=== PATIENT | male | born 1960 | race African-American/Black ===

== ENCOUNTER 2016-07-29 20:17 | Emergency (ER) | payer OTHER ==
[~2016-07-29] VITALS: Ht 177.8 cm; Wt 128.4 kg
[~2016-07-29 20:17] MED LIST: AMLO5TAB2 PO; ASPI81TA7 PO; ASPI81TA85 PO; HYDR12.55 PO; LOSA25TA8 PO; LOSA50TA20 PO; METF500T PO; METO50TA2 PO; MULTCAP PO; MULTTAB4 PO; NICO21PAT TD; OMEP20CA3 PO; SIMV20TA2 PO
[2016-07-29 20:19] VITALS: BP 146/84
[2016-07-29] MEDS ORDERED: ATOR1TAB18 PO (21:06)
[2016-07-29] MEDS ORDERED: INSULADS INJ (21:06)
== END 2016-07-30 00:55 | disposition left against medical advice (07) ==
LOC: M ED 07-30 00:23
DX: Z53.21 Procedure and treatment not carried out due to patient leaving prior to being seen by health care provider (principal)

== ENCOUNTER 2016-08-07 12:59 | Emergency (ER) | payer OTHER ==
[~2016-08-07] VITALS: Ht 177.8 cm; Wt 127.0 kg
[~2016-08-07 12:59] MED LIST changes: +ATOR1TAB18 PO; +INSULADS INJ
[2016-08-07] MEDS ORDERED: METF850T PO (13:16)
[2016-08-07] MEDS ORDERED: AMLO10TA2 PO (13:16)
[2016-08-07] MEDS ORDERED: ATOR40TA PO (13:16)
[2016-08-07] MEDS ORDERED: VITA100041 PO (13:16)
[2016-08-07] MEDS ORDERED: CHLO25TA GT (13:16)
[2016-08-07] MEDS ORDERED: OXYC1SOL PO (13:16)
[2016-08-07] MEDS ORDERED: METO-209 PO (13:16)
[2016-08-07] MEDS ORDERED: NS 1,000 ML IV ONE (13:30)
[2016-08-07] MEDS ORDERED: ONDANSETRON 4MG/2ML VIAL (J2405) IV ONE (13:30)
[2016-08-07] MEDS ORDERED: KETOROLAC 30 MG/ML VIAL (J1885) IV ONE (13:30)
[2016-08-07 14:21] LABS: BASO % 0.7 % (0.0-1.0); EOS # 0.2 K/mm3 (0.0-0.50); EOS % 2.3 % (0.0-3.0); LARGE UNSTAINED CELL # 0.2 K/mm3 (0.0-0.4); LARGE UNSTAINED CELL % 3.1 % (0.0-4.0); LYMPH # 1.9 K/mm3 (1.5-4.5); LYMPH % 29.3 % (24.0-44.0); MEAN CORPUSCULAR HEMOGLOBIN 27.7 pg (27.0-33.0); MEAN CORPUSCULAR HGB CONC 33.2 g/dl (32.0-36.5); MEAN CORPUSCULAR VOLUME 83.5 fl (80.0-96.0); MONO # 0.4 K/mm3 (0.0-0.8); MONO % 5.5 % (0.0-5.0); NEUTROPHILS # 3.9 K/mm3 (1.8-7.7); NEUTROPHILS % 59.1 % (36.0-66.0); PLATELET COUNT, AUTOMATED 271 k/mm3 (150-450); RED CELL DISTRIBUTION WIDTH 12.4 % (11.5-14.5); WHITE BLOOD COUNT 6.6 K/mm3 (4.0-10.0)
[2016-08-07 14:54] LABS: ALBUMIN 3.5 GM/DL (3.2-5.2); ALBUMIN/GLOBULIN RATIO 0.64 (1.00-1.93); ALKALINE PHOSPHATASE 85 U/L (45-117); ALT/SGPT 41 U/L (12-78); AMYLASE 67 U/L (25-115); ANION GAP 8 MEQ/L (8-16); AST/SGOT 30 U/L (15-37); BILIRUBIN,DIRECT 0.2 MG/DL (0.0-0.2); BILIRUBIN,TOTAL 0.7 MG/DL (0.2-1.0); BLOOD UREA NITROGEN 15 MG/DL (7-18); CALCIUM LEVEL 9.6 MG/DL (8.5-10.1); CARBON DIOXIDE LEVEL 29 MEQ/L (21-32); CHLORIDE LEVEL 101 MEQ/L (98-107); GLOMERULAR FILTRATION RATE > 60.0 (>56); GLUCOSE, FASTING 106 MG/DL (70-105); POTASSIUM SERUM 3.7 MEQ/L (3.5-5.1); SODIUM LEVEL 138 MEQ/L (136-145)
[2016-08-07] MEDS ORDERED: DULC100C PO ×2 (15:07→15:28)
[2016-08-07] MEDS ORDERED: ULTR50TA PO ×2 (15:07→15:27)
[2016-08-07 15:08] VITALS: BP 136/80
--- NOTE | 2016-08-08 08:18 | ECGEPIP ---
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
== END 2016-08-07 15:35 | disposition home or self-care (01) ==
LOC: M ED 13:29
DX: K85.90 Acute pancreatitis without necrosis or infection, unspecified (principal); I51.9 Heart disease, unspecified; Z79.899 Other long term (current) drug therapy; Z79.82 Long term (current) use of aspirin; Z79.4 Long term (current) use of insulin; Z91.013 Allergy to seafood; Z88.8 Allergy status to other drugs, medicaments and biological substances
CPT/HCPCS: 80048; 80076; 81001; 82150; 82550; 82553; 83690; 84484; 85025; 93005; 96361; 96374; 96375; 99282; J1885; J2405

== ENCOUNTER 2016-12-11 00:14 | Emergency (ER) | payer OTHER ==
[~2016-12-11] VITALS: Ht 177.8 cm; Wt 125.0 kg
[~2016-12-11 00:14] MED LIST changes: +AMLO10TA2 PO; -ATOR1TAB18 PO; +ATOR40TA75 PO; +ATOR80TA59 PO; +CHLO25TA PO; +DULC100C PO; -METF500T PO; +METF500T13 PO; +METF850T4 PO; +METO1TAB33 PO; +METO50TA7 PO; +OXYC1SOL3 PO; +ULTR50TA8 PO; +VITA-182 PO
[2016-12-11 00:22] VITALS: BP 155/98
[2016-12-11 01:26] LABS: INR 0.96
[2016-12-11 01:38] LABS: BASO # 0.1 K/mm3 (0.0-0.2); BASO % 1.3 % (0.0-1.0); EOS # 0.2 K/mm3 (0.0-0.50); EOS % 2.7 % (0.0-3.0); LARGE UNSTAINED CELL # 0.3 K/mm3 (0.0-0.4); LARGE UNSTAINED CELL % 3.6 % (0.0-4.0); LYMPH # 2.5 K/mm3 (1.5-4.5); LYMPH % 34.3 % (24.0-44.0); MEAN CORPUSCULAR HEMOGLOBIN 27.6 pg (27.0-33.0); MEAN CORPUSCULAR HGB CONC 32.5 g/dl (32.0-36.5); MEAN CORPUSCULAR VOLUME 85.1 fl (80.0-96.0); MONO # 0.5 K/mm3 (0.0-0.8); MONO % 7.1 % (0.0-5.0); NEUTROPHILS # 3.7 K/mm3 (1.8-7.7); PLATELET COUNT, AUTOMATED 251 k/mm3 (150-450); RED CELL DISTRIBUTION WIDTH 12.7 % (11.5-14.5); WHITE BLOOD COUNT 7.2 K/mm3 (4.0-10.0)
[2016-12-11 01:46] LABS: ALBUMIN 3.4 GM/DL (3.2-5.2); ALBUMIN/GLOBULIN RATIO 0.65 (1.00-1.93); ALKALINE PHOSPHATASE 69 U/L (45-117); ALT/SGPT 37 U/L (12-78); AMYLASE 91 U/L (25-115); ANION GAP 6 MEQ/L (8-16); AST/SGOT 24 U/L (15-37); BILIRUBIN,DIRECT 0.1 MG/DL (0.0-0.2); BILIRUBIN,TOTAL 0.4 MG/DL (0.2-1.0); BLOOD UREA NITROGEN 23 MG/DL (7-18); CALCIUM LEVEL 9.4 MG/DL (8.5-10.1); CARBON DIOXIDE LEVEL 29 MEQ/L (21-32); CHLORIDE LEVEL 105 MEQ/L (98-107); CREATININE FOR GFR 1.14 MG/DL (0.70-1.30); GLOMERULAR FILTRATION RATE > 60.0 (>56); GLUCOSE, FASTING 133 MG/DL (70-105); POTASSIUM SERUM 3.6 MEQ/L (3.5-5.1); SODIUM LEVEL 140 MEQ/L (136-145); TOTAL PROTEIN 8.6 GM/DL (6.4-8.2)
[2016-12-11] MEDS ORDERED: MORPHINE 4 MG/ML 1ML SYRINGE IV ONE (02:15)
[2016-12-11] MEDS ORDERED: NS 1,000 ML IV ONE (02:15)
[2016-12-11] MEDS ORDERED: HYDROmorphone HCL 1 MG/ML SYRINGE (J1170) IV ONE (02:45)
--- NOTE | 2016-12-11 03:40 | REPUSA ---
CLINICAL HISTORY: Abdominal pain. TECHNIQUE: Multiple axial, sagittal and coronal CT images were obtained through the abdomen and pelvi s without administration of oral or IV contrast material. COMMENTS: Mild peripancreatic fat stranding. The liver is enlarged with decreased attenuation without mass or defect. There is no intra or extrahe patic biliary ductal dilatation. The spleen is normal. The gallbladder is within normal limits. The p ancreas is of normal contour and attenuation characteristics. There is no evidence of adrenal mass. 2.5 cm right renal well-defined hypodense lesion suggestive of a cyst. The kidneys are normal in size, shape and configuration. No renal or ureteral calculi are identified. There is no hydroureter or hydronephrosis. There is no evidence for appendicitis. There is no bowel wall thickening. No evidence for small or la rge bowel obstruction. There is no evidence of abdominal ascites or lymphadenopathy. There is no evidence of intrinsic or extrinsic bladder mass. There is no pelvic ascites or lymphadeno aldair. Images of the lung bases show no evidence of pleural or parenchymal mass. There are no pleural effusi ons. The bony structures are free of lytic or blastic lesions. Multilevel degenerative changes are seen in volving the thoracolumbar spine. Scattered calcifications are seen involving the aorta and major branches compatible with atherosclero sis. IMPRESSION: Hepatomegaly with fatty liver infiltration. Nondilated biliary tree. Mild acute pancreatitis. Right renal cyst. Thank you for your kind referral of this patient.
[2016-12-11] MEDS ORDERED: VITMTA PO (04:48)
[2016-12-11] MEDS ORDERED: PERCOCET 5MG/325MG TAB PO PRN (05:00)
[2016-12-11] MEDS ORDERED: GLUCOSE 4 GM CHEW TABLET PO PRN (05:00)
[2016-12-11] MEDS ORDERED: HEPARIN SOD (PORCINE) 5000 UNITS/ML VIAL SC SCH (05:00)
[2016-12-11] MEDS ORDERED: HumaLOG INSULIN (NovoLOG) PER UNIT SC SCH (05:00)
[2016-12-11] MEDS ORDERED: KCL 20MEQ IN 0.45NS 1000ML 1,000 ML IV SCH (05:00)
[2016-12-11] MEDS ORDERED: DEXTROSE 50% 50 ML SYRINGE IV PRN (05:00)
[2016-12-11] MEDS ORDERED: MORPHINE 2 MG/ML 1ML SYRINGE IV PRN (05:00)
[2016-12-11] MEDS ORDERED: GLUCAGON FOR INJ 1 MG VIAL (J1610) SC PRN (05:00)
[2016-12-11] MEDS ORDERED: ONDANSETRON 4MG/2ML VIAL (J2405) IV PRN (05:00)
[2016-12-11] MEDS ORDERED: ACETAMINOPHEN TAB 650MG DOSE (2X325MG) PO PRN (05:00)
[2016-12-11] MEDS ORDERED: NORCO 5/325MG TABLET (BULK FOR ED) PO ONE (05:30)
--- NOTE | 2016-12-11 06:17 | ER ---
DATE OF CONSULTATION: 12/11/2016 PRIMARY CARE PROVIDER: [facility] CHIEF COMPLAINT: Abdominal pain, epigastric. HISTORY OF PRESENT ILLNESS: This is a 56-year-old male patient with underlying medical history of pancreatitis, last episode in July, hypertension, CVA diagnosed 2007 with no residual deficit, coronary artery disease with coronary artery bypass graft (CABG) 2006, type 2 diabetes, dyslipidemia, obesity, presented to the hospital with epigastric pain, no nausea, no vomiting, with no exacerbating factor, 8/10 in severity, radiating to his back similiar last episode pancreatitis. 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 Denies any chest pain, pressure or discomfort. Denies any shortness of breath. Does not drink alcoholic beverages. ALLERGIES: To HYDROCHLOROTHIAZIDE, LISINOPRIL, SHELLFISH. PAST MEDICAL HISTORY: 1. Chronic pancreatitis. 2. Hypertension. 3. CVA 2007. 4. Coronary artery disease with myocardial infarction (MS) times two. 5. Type 2 diabetes. 6. Dyslipidemia. PAST SURGICAL HISTORY: 1. CABG 2006. 2. Appendectomy. 3. Lipoma removed from the back. SOCIAL HISTORY: Patient smokes half a pack per day for 40 plus years. Dopes not use recreational drugs. Denies alcohol use. FAMILY HISTORY: Patient's mother with lung cancer. REVIEW OF SYSTEMS: Reported epigastric pain and poor oral intake. All other review of systems were negative. HOME MEDICATION: - Norvasc 10 mg by mouth daily - aspirin 81 mg by mouth nightly - Lipitor 40 mg by mouth nightly - chlorthalidone 25 mg by mouth daily - vitamin D 1000 units by mouth daily - Lantus insulin 40 units daily - metformin 850 mg by mouth three times a day - metoprolol 100 mg by mouth daily - multivitamin 1 tablet by mouth daily - omeprazole 20 mg by mouth daily PHYSICAL EXAMINATION: Vital Signs: Temperature 98.7, pulse 89, respirations 16, blood pressure 155/98 , pulse oximetry 99% on room air. General: Patient alert and oriented times three, in no acute distress, morbidly obese -Polish. HEENT: Normocephalic, atraumatic. Pulmonary: Bilateral clear to auscultation. Cardiac: Regular rate and rhythm. Normal S1, S2. Abdomen: Obese. Soft. Mild epigastric tenderness. Normal bowel sound. Extremities: No edema bilateral lower extremities. Neurologic: No focal deficits. LABORATORY: WBC 7.2, hemoglobin and hematocrit 14.9/45.8, platelets 251. Chemistry: Sodium 140, potassium 3.6, chloride 105, bicarbonate 29, BUN 23, creatinine 1.14. Cardiac enzymes are negative. Lipase 1611. CT scan shows evidence of acute pancreatitis with no biliary duct dilatation. ASSESSMENT AND PLAN: This is a 56-year-old male patient with underlying medical history of pancreatitis, hypertension, CVA, coronary artery disease with myocardial infarction and CABG, diabetes, dyslipidemia, appendectomy, admitted with acute pancreatitis. PROBLEMS: 1. Acute on chronic pancreatitis. Intravenous (IV) fluids for hydration. Pain medication as ordered. Clear liquid diet, advance as tolerated. Will consider gastroenterology consultation for possible ERCP. Given patient reported possibility of pancreatic duct strictures, will get MRCP for confirmation. Followup electrolytes. Monitor for clinical improvement. 2. Hypertension. Continue current medication. Monitor blood pressure. 3. History of CVA. Continue aspirin and statin. 4. Dyslipidemia. Continue statin. 5. Morbid obesity complicating care. 6. Type 2 diabetes. Levemir at a reduced dose, every 6 hour fingerstick, insulin every 6 hour protocol. 7. Smoking. Counseling provided. Nicotine patch has been offered. 8. Deep venous thrombosis (DVT) prophylaxis. Heparin subcu. DISPOSITION PLANNING: Pending clinical improvement. [facility]
--- NOTE | 2016-12-11 06:26 | DSES ---
DATE OF ADMISSION: 12/11/2016 DATE OF DISCHARGE: 12/11/2016 PRIMARY CARE PROVIDER: [facility] FINAL DIAGNOSES: 1. Acute on chronic pancreatitis. 2. Poor compliance. 3. History of CVA. 4. History of hypertension. 5. Coronary arterial disease. 6. Diabetes type 2. 7. Dyslipidemia. HISTORY OF PRESENT ILLNESS: This is a 56-year-old male patient with underlying medical history of pancreatitis in July, hypertension, CVA, coronary arterial disease with myocardial infarction (AK) in 2006, type 2 diabetes, history of coronary artery bypass graft (CABG), and dyslipidemia who presented with for the past two to three days of epigastric pains 8 out of 10 radiating to his back, poor by mouth intake, and reported burning sensation, no alleviating or exacerbating factor. Denied any nausea or vomiting, but in July the patient's pancreatitis episode was associated with nausea and vomiting. The patient denies any chest pain, pressure or discomfort, fevers or chills, tolerating oral liquid diet. Denies any diarrhea. The patient was evaluated in the emergency room and previously evaluated with MRCP as per patient. No report is available. His suspected pancreatic duct narrowing is in the process of scheduling for an ERCP for possible stent placement. Also told by patient that possible pancreatitis associated with hydrochlorothiazide, as per patient's primary care provider. The patient in the emergency department (ED) feels comfortable and is resting comfortably in no acute distress. HOSPITAL COURSE: The emergency room has requested the patient to be admitted. The patient was seen by me in the emergency room. After the completion of order, the patient has requested to leave the hospital against medical advice. Subsequently, the patient was discharged against medical advice by the emergency room provider. Recommended followup with primary care provider and tester electronic scale as soon as possible. Return to hospital if symptoms worsen. Diet as tolerated. Keep oral hydration recommended. The patient left against medical advice. He is aware of the risks of mortality, morbidity and potential dying with worsening pancreatitis.
[2016-12-11] MEDS ORDERED: METOPROLOL SUCC (TopROL XL) 100MG *XL* TAB PO SCH (09:00)
[2016-12-11] MEDS ORDERED: amLODIPine 10 MG TAB PO SCH (09:00)
[2016-12-11] MEDS ORDERED: LEVEMIR (INSULIN DETEMIR) 1 UNITS/0.01ML SC SCH (09:00)
[2016-12-11] MEDS ORDERED: MULTIVITAMINS/MINERALS THERAP 1 TAB PO SCH (09:00)
[2016-12-11] MEDS ORDERED: VITAMIN D 1,000 INTERNATIONAL UNITS TABLET PO SCH (09:00)
[2016-12-11] MEDS ORDERED: OMEPRAZOLE 20 MG CAP PO SCH (09:00)
--- NOTE | 2016-12-11 13:43 | ECGEPIP ---
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
[2016-12-11] MEDS ORDERED: ATORVASTATIN 20 MG TAB PO SCH (21:00)
[2016-12-11] MEDS ORDERED: ASPIRIN 81 MG ENTERIC TAB PO SCH (21:00)
== END 2016-12-11 05:41 | disposition left against medical advice (07) ==
LOC: M ED 00:14 → UNDOADMIN 04:49 → M ED INP 04:49 → M ED 05:41
DX: K85.90 Acute pancreatitis without necrosis or infection, unspecified (principal); E11.9 Type 2 diabetes mellitus without complications; I10 Essential (primary) hypertension; E78.5 Hyperlipidemia, unspecified; K21.9 Gastro-esophageal reflux disease without esophagitis; K85.30 Drug induced acute pancreatitis without necrosis or infection; Z95.1 Presence of aortocoronary bypass graft; Z88.8 Allergy status to other drugs, medicaments and biological substances; Z91.013 Allergy to seafood; Z79.82 Long term (current) use of aspirin; Z79.4 Long term (current) use of insulin; Z79.84 Long term (current) use of oral hypoglycemic drugs; Z79.899 Other long term (current) drug therapy
CPT/HCPCS: 36415; 74176; 80048; 80076; 82150; 82550; 82553; 83690; 84484; 85025; 85610; 85730; 93005; 93041; 96374; 96375; 96376; 99284; J1170